=== PATIENT | male | born 1955 | race Caucasian/White ===

== ENCOUNTER 2022-02-07 20:14 | Emergency (ER) | payer MEDICARE, OTHER, SELFPAY ==
[2022-02-07 20:18] VITALS: BP 158/87; PULSE 75; RESP 18; O2SAT 99
--- NOTE | 2022-02-07 21:46 | ED.BACK ---
HPI - Back Pain/Injury General Chief Complaint: Back Pain/Injury Stated Complaint: sciatica Time Seen by Provider: 02/07/22 21:45 Source: patient Mode of arrival: ambulatory Limitations: no limitations History of Present Illness HPI Narrative: Patient is a 66-year-old male with history of hypertension, sciatica, presenting to the emergency department for evaluation of right SI joint pain, sciatica type symptoms. Patient states pain initially began in his right SI joint and has traveled down his leg over the past several weeks. Patient states he is currently seeing Dr. Pope as well as pain management and is set to have injections next week. Patient reports that he is having some discomfort in his left buttocks as well. He denies testicular pain or penile pain. Denies dysuria or urinary incontinence. He denies saddle anesthesia or fecal incontinence. He denies recent fall or injury. He has been ambulatory. Patient has tried Tylenol and ibuprofen at home without much improvement in his symptoms. Patient denies inciting injury, does state that he has been in his car traveling to [facility] for some of his son's medical appointments and he thinks that increased time sitting has exacerbated his pain. Related Data Allergies Allergy/AdvReac Type Severity Reaction Status Date / Time adhesive Allergy Hives Verified 02/07/22 20:22 clindamycin Allergy Hives Verified 02/07/22 20:22 Penicillins Allergy Seizure Verified 02/07/22 20:22 Review of Systems Review of Systems: CONSTITUTIONAL: Denies fever CARDIOVASCULAR: Denies chest pain RESPIRATORY: Denies cough or dyspnea. GASTROINTESTINAL: Denies abdominal pain SKIN: Denies rash MUSCULOSKELETAL: Reports lower back pain NEUROLOGIC: Denies headache [facility] Past Medical History Medical History Hypertension Surgical History Surgical History (Updated 02/07/22 @ 21:57 by Kendra Whelan MD) Knee joint replacement status Social History Social History (Updated 02/07/22 @ 21:57 by Kendra Whelan MD) Smoking status: Never smoker Alcohol intake: never Substance use: never Gender identity (if verbalized by the patient): Male Exam Narrative: GENERAL: Awake, alert, conversant HEAD: Normocephalic, atraumatic. EYES: PERRLA and EOMI. ENT: Nares clear, no rhinorrhea or epistaxis. Mucous membranes moist. NECK: Supple. CHEST: No respiratory distress, breathing even and non labored HEART: Regular rate, sinus rhythm ABDOMEN:Non distended, non tender EXTREMITIES: Normal range of motion. No edema. Patient with right SI joint tenderness on exam that reproduces pain. Positive straight leg raise test on the right. Intact distal sensation. SKIN: Warm, dry, no rash. NEURO:No focal deficits. Alert and oriented x3. Strength in the bilateral lower extremities 5/5. Intact FHL/EHL bilaterally. Course Vital Signs Vital signs: Vital Signs Pulse Rate 75 02/07/22 20:18 Respiratory Rate 18 02/07/22 20:18 Blood Pressure 158/87 H 02/07/22 20:18 Pulse Oximetry 99 02/07/22 20:18 Pulse Rate 75 02/07/22 20:18 Respiratory Rate 18 02/07/22 20:18 Blood Pressure 158/87 H 02/07/22 20:18 Pulse Oximetry 99 02/07/22 20:18 MDM - Back Pain/Injury MDM Narrative Medical decision making narrative: Given History and Exam the patient appears to be at low risk for Spinal Cord Compression Syndrome, Vertebral Malignancy/Mets, acute Spinal Fracture, Vertebral Osteomyelitis, Epidural Abscess, Infected or Obstructing Kidney Stone. Patient without saddle anesthesia, recent fall or injury, history of cancer. Patient has had longstanding history of this and is established with providers as well as pain management. Their presentation appears most likely to be secondary to non-emergent musculoskeletal etiology vs non-emergent disc herniation. Pain is reproducible, and patient has no other high risk factors such as histo
[2022-02-07] MEDS: ACETAMINOPHEN 500 MG TABLET 1000 MG PO (22:17)
[2022-02-07] MEDS: diazePAM (*CRX) 5 MG TABLET PO (22:18)
[2022-02-07] MEDS: KETOROLAC (*BKC) 60 MG/2 ML VIAL 30 MG IM (22:21)
[2022-02-07 23:10] VITALS: BP 137/95; PULSE 64; RESP 18; O2SAT 95
== END 2022-02-07 23:10 | disposition home or self-care (01) ==
LOC: ANHED 22:28
PROVIDERS: Emergency Provider Emergency Medicine; PCP Physician Assistant
DX: M54.16 Radiculopathy, lumbar region (principal); M54.30 Sciatica, unspecified side; I10 Essential (primary) hypertension
CPT/HCPCS: 96372; 96374; 99284; A9270; J1100; J1885